=== PATIENT | female | born 1995 | race Caucasian/White ===

== ENCOUNTER 2017-05-09 18:14 | Emergency (ER) | payer SELFPAY ==
[2017-05-09 18:46] VITALS: BP 126/56; PULSE 100; TEMP 97.6; BMI 23.3
[2017-05-09 19:49] LABS: HCG,QUALITATIVE URINE POSITIVE
[2017-05-09 19:50] LABS: URINE APPEARANCE SLCLOUDY; URINE BILIRUBIN NEGATIVE (NEGATIVE); URINE BLOOD 1+ (NEGATIVE); URINE COLOR YELLOW; URINE GLUCOSE (UA) NEGATIVE (NEGATIVE); URINE KETONE NEGATIVE (NEGATIVE); URINE LEUK ESTERASE TRACE (NEGATIVE); URINE NITRITE POSITIVE (NEGATIVE); URINE PROTEIN NEGATIVE (NEGATIVE); URINE UROBILINOGEN NEGATIVE mg/dL (0.2-1.0)
[2017-05-09 19:53] LABS: EPI CELLS FEW /HPF (FEW); URINE BACTERIA MODERATE /hpf (NONE SEEN); URINE MUCUS RARE
[2017-05-09] MEDS ORDERED: NITROFURANTOIN MACROCRYSTAL 50 MG CAPSULE (FP) PO SCH (20:30)
--- NOTE | 2017-05-09 20:57 | PDOC ---
History of Present Illness - General Chief Complaint: Pain, Acute Stated Complaint: ABD PAIN/ Time Seen by Provider: 05/09/17 18:50 - History of Present Illness Initial Comments: 05/09/17 20:57 22F with pmh of lower abdominal pain, vomiting and generalized fatigue for the past 3 days. No care at this time. No difficulty urinating or moving bowels. 05/09/17 20:58 05/09/17 20:59 Past History - Past Medical History Allergies/Adverse Reactions: Allergies Allergy/AdvReac Type Severity Reaction Status Date / Time No Known Allergies Allergy Verified 05/09/17 18:31 Home Medications: Ambulatory Orders Nitrofurantoin Monohyd/M-Cryst [Macrobid -] 100 mg PO BID #14 capsule 05/09/17 Oseltamivir Phosphate [Tamiflu] 75 mg PO BID #10 capsule 05/09/17 COPD: No Other medical history: denies - Suicide/Smoking/Psychosocial Hx Smoking History: Current every day smoker Have you smoked in the past 12 months: Yes Number of Cigarettes Smoked Daily: 8 Information on smoking cessation initiated: No Hx Alcohol Use: No Drug/Substance Use Hx: No Substance Use Type: None Review of Systems - Review of Systems Able to Perform ROS?: Yes Is the patient limited Amharic proficient: No Constitutional: Yes: Symptoms Reported, Weakness. No: Chills HEENTM: No: Symptoms Reported Respiratory: No: Symptoms reported Cardiac (ROS): No: Symptoms Reported ABD/GI: Yes: See HPI : Yes: See HPI Musculoskeletal: No: Symptoms Reported Integumentary: No: Symptoms Reported All Other Systems: Reviewed and Negative *Physical Exam - Vital Signs Last Vital Signs Temp Pulse Resp BP Pulse Ox 97.6 F 100 H 20 126/56 100 05/09/17 18:32 05/09/17 18:32 05/09/17 18:32 05/09/17 18:32 05/09/17 18:32 - Physical Exam General Appearance: Yes: Nourished, Appropriately Dressed. No: Apparent Distress HEENT: positive: EOMI, SONYA, Normal ENT Inspection Neck: negative: Tender Respiratory/Chest: positive: Lungs Clear, Normal Breath Sounds. negative: Chest Tender, Respiratory Distress Cardiovascular: positive: Regular Rhythm, Regular Rate, S1, S2 Female Pelvic Exam: positive: normal external exam, cervical os closed, CMT, discharge (white) Gastrointestinal/Abdominal: positive: Normal Bowel Sounds, Tender (suprapubic), Protuberent Extremity: positive: Normal Capillary Refill, Normal Inspection Integumentary: positive: Normal Color, Dry, Warm Neurologic: positive: Fully Oriented, Alert, Depressed Affect ED Treatment Course - LABORATORY CBC & Chemistry Diagram: 05/09/17 21:00 05/09/17 21:00 - ADDITIONAL ORDERS Additional order review: Laboratory Results 05/09/17 19:30 Urine Color Yellow Urine Appearance Slcloudy Urine pH 6.0 Ur Specific [place] 1.006 Urine Protein Negative Urine Glucose (UA) Negative Urine Ketones Negative Urine Blood 1+ H Urine Nitrite Positive Urine Bilirubin Negative Urine Urobilinogen Negative Ur Leukocyte Esterase Trace Urine WBC (Auto) 2 Urine RBC (Auto) 3 Ur Epithelial Cells Few Urine Bacteria Moderate Urine Mucus Rare Urine HCG, Qual Positive - RADIOLOGY Radiology Studies Ordered: Category Date Time Status LIMITED US [US] Stat Ultrasound 05/09/17 20:18 Taken Medical Decision Making - Medical Decision Making 05/09/17 21:25 Positive preg Positive flu positve UA for UTI Will start on Macrobid U/S pending. *DC/Admit/Observation/Transfer Diagnosis at time of Disposition: Urinary tract infection affecting care of mother in second trimester, antepartum, Influenza - Discharge Dispostion Disposition: HOME Condition at time of disposition: Fair Admit: No - Referrals - Patient Instructions Printed Discharge Instructions: DI for Urinary Tract Infection (UTI), Influenza Vaccine Reduces and Hospitalization From Complications of I, How to Avoid a Cold or Flu, and STDs - Post Discharge Activity
[2017-05-09 21:07] LABS: BASO % 0.8 % (0-2.0); EOS % 0.3 % (0-4.5); HEMATOCRIT 32.1 % (32.4-45.2); HEMOGLOBIN 10.6 GM/dL (10.7-15.3); LYMPH % 10.4 % (8-40); MCH 28.6 pg (25.7-33.7); MCHC 33.1 g/dl (32.0-36.0); MEAN CELL VOLUME 86.4 fl (80-96); MONO % 7.3 % (3.8-10.2); NEUT % 81.2 % (42.8-82.8); PLATELET COUNT 201 K/MM3 (134-434); RBC 3.72 M/mm3 (3.60-5.2); WHITE BLOOD COUNT 7.9 K/mm3 (4.0-10.0)
[2017-05-09] MEDS ORDERED: ACETAMINOPHEN 1000 MG/100 ML VIAL (NON FORMULARY) IVPB ONE (21:23)
[2017-05-09] MEDS ORDERED: SODIUM CHLORIDE 1,000 ML IV STA (21:23)
[2017-05-09 21:30] LABS: ALBUMIN 2.6 g/dl (3.4-5.0); ANION GAP 7 (8-16); BILIRUBIN,TOTAL 0.1 mg/dL (0.2-1.0); BLOOD UREA NITROGEN 6 mg/dL (7-18); CALCIUM 7.5 mg/dL (8.5-10.1); CHLORIDE 105 mmol/L (98-107); CO2 25 mmol/L (21-32); CREATININE 0.5 mg/dL (0.55-1.02); GLUCOSE,RANDOM 79 mg/dL (74-106); SGPT/ALT 24 U/L (12-78); SODIUM 137 mmol/L (136-145); TOT PROT 6.2 g/dl (6.4-8.2)
[2017-05-09] MEDS ORDERED: OSELTAMIVIR PHOSPHATE 75 MG CAPSULE PO ONE (21:34)
--- NOTE | 2017-05-09 21:34 | PDOC ---
Attending Attestation - Resident Resident Name: AdkinsRichmond - ED Attending Attestation I have performed the following: I have examined & evaluated the patient, The case was reviewed & discussed with the resident, I agree w/resident's findings & plan, Exceptions are as noted - Medical Decision Making 05/09/17 21:32 I, Dr. Loraine Preston, DO, attest that this document has been prepared under my direction and personally reviewed by me in its entirety. I further attest, that it accurately reflects all work, treatment, procedures and medical decision -making performed by me. 05/09/17 21:32 a/p: 22yo female female with cramping, no bleeding, achy, not feeling well -will cehck labs, ultrasound -flu swab -ua -type and screen no vag bleeding states hx of STD will do STD check while here in the ED currently taking vitamins will monitor and reassess 05/09/17 21:33 ultrasound shows 20week live IUP <Loraine Preston - Last Filed: 05/09/17 21:32> - HPI HPI: 05/09/17 21:56 The patient is a 20 weeks 22 year old female , with a significant past medical history of STD (patient is unable to specify), who presents to the emergency department with, nausea, lower abdominal pain and dysuria for approx. one week and one episode of vomiting this morning. The patient reports the lower abdominal pain as a pressure like pain. The patient reports recent vaginal discharge but denies vaginal bleeding. The patient reports she is currently taking vitamins. The patient reports she believes her LMP was in the beginning of January. She denies recent fevers, chills, headache or dizziness. She denies diarrhea or constipation. She denies recent chest pain or shortness of breath. Allergies: NKA - Physicial Exam PE: 05/09/17 21:57 GENERAL: +Tearful. Awake, alert, and fully oriented. HEAD: No signs of trauma EYES: PERRLA, EOMI, sclera anicteric, conjunctiva clear ENT: Auricles normal inspection, hearing grossly normal, nares patent, oropharynx clear without exudates. Moist mucosa NECK: Normal ROM, supple, no lymphadenopathy, JVD, or masses LUNGS: Breath sounds equal, clear to auscultation bilaterally. No wheezes, and no crackles HEART: +Tachycardia. Normal S1 and S2, no murmurs, rubs or gallops ABDOMEN: Soft, nontender, normoactive bowel sounds. No guarding, no rebound. No masses PELVIC: +Lower pelvic tenderness. EXTREMITIES: Normal range of motion, no edema. No clubbing or cyanosis. No cords, erythema, or tenderness NEUROLOGICAL: Cranial nerves II through XII grossly intact. Normal speech, normal gait SKIN: Warm, Dry, normal turgor, no rashes or lesions noted. <Mu Robison - Last Filed: 05/09/17 21:57>
[2017-05-09] MEDS ORDERED: AZITHROMYCIN 1 GM PACKET PO ONE (21:42)
[2017-05-09] MEDS ORDERED: OSELTAMIVIR PHOSPHATE 75 MG CAPSULE ONE (21:45)
[2017-05-09] MEDS ORDERED: AZITHROMYCIN 250 MG TABLET ONE (21:45)
[2017-05-09] MEDS ORDERED: NITROFURANTOIN MACROCRYSTAL 50 MG CAPSULE (FP) ONE (21:45)
[2017-05-09 21:46] LABS: ALK PHOS 64 U/L (45-117)
[2017-05-09] MEDS ORDERED: ACETAMINOPHEN INJECTION 100 ML IVPB ONE (21:46)
[2017-05-09 21:47] LABS: POTASSIUM 4.7 mmol/L (3.5-5.1); SGOT/AST 27 U/L (15-37)
--- NOTE | 2017-05-09 22:06 | PDOC ---
*Physical Exam - Vital Signs Last Vital Signs Temp Pulse Resp BP Pulse Ox 97.6 F 100 H 20 126/56 100 05/09/17 18:32 05/09/17 18:32 05/09/17 18:32 05/09/17 18:32 05/09/17 18:32 ED Treatment Course - LABORATORY CBC & Chemistry Diagram: 05/09/17 21:00 05/09/17 21:00 - ADDITIONAL ORDERS Additional order review: Laboratory Results 05/09/17 05/09/17 21:00 19:30 Sodium 137 Potassium 4.7 Chloride 105 Carbon Dioxide 25 Anion Gap 7 L BUN 6 L Creatinine 0.5 L Creat Clearance w eGFR > 60 Random Glucose 79 Calcium 7.5 L Total Bilirubin 0.1 L AST 27 ALT 24 Alkaline Phosphatase 64 Total Protein 6.2 L Albumin 2.6 L Beta HCG, Quant 05233.8 Urine Color Yellow Urine Appearance Slcloudy Urine pH 6.0 Ur Specific [place] 1.006 Urine Protein Negative Urine Glucose (UA) Negative Urine Ketones Negative Urine Blood 1+ H Urine Nitrite Positive Urine Bilirubin Negative Urine Urobilinogen Negative Ur Leukocyte Esterase Trace Urine WBC (Auto) 2 Urine RBC (Auto) 3 Ur Epithelial Cells Few Urine Bacteria Moderate Urine Mucus Rare Urine HCG, Qual Positive 05/09/17 19:30 Influenza Types A,B Antigen (SUPRIYA) - Final Nasopharyngeal Swab - Final 05/09/17 21:00 RBC 3.72 MCV 86.4 MCHC 33.1 RDW 18.0 H MPV 8.0 Neutrophils % 81.2 Lymphocytes % 10.4 Monocytes % 7.3 Eosinophils % 0.3 Basophils % 0.8 - RADIOLOGY Radiology Studies Ordered: Category Date Time Status LIMITED US [US] Stat Ultrasound 05/09/17 20:18 Completed - Medications Given in the ED: ED Medications Discontinued Medications Generic Name Dose Route Start Last Admin Trade Name Freq PRN Reason Stop Dose Admin Acetaminophen 1,000 mg 05/09/17 21:23 05/09/17 21:59 Ofirmev Injection - IVPB 05/09/17 21:24 1,000 mg ONCE ONE Administration Azithromycin 1 gm 05/09/17 21:42 05/09/17 21:59 Zithromax - PO 05/09/17 21:43 1 gm ONCE ONE Administration Oseltamivir Phosphate 75 mg 05/09/17 21:34 05/09/17 21:59 Tamiflu - PO 05/09/17 21:35 75 mg ONCE ONE Administration Medical Decision Making - Medical Decision Making 05/09/17 22:[address] Caceres at [facility] and Delivery who explained that the patient didn' t need to come to L&D because none of her complaints were obstetric in nature. *DC/Admit/Observation/Transfer Diagnosis at time of Disposition: Urinary tract infection affecting care of mother in second trimester, antepartum, Influenza - Discharge Dispostion Disposition: HOME Condition at time of disposition: Fair - Prescriptions Prescriptions: Nitrofurantoin Monohyd/M-Cryst [Macrobid -] 100 mg PO BID #14 capsule Oseltamivir Phosphate [Tamiflu] 75 mg PO BID #10 capsule - Referrals - Patient Instructions Printed Discharge Instructions: How to Avoid a Cold or Flu, Influenza Vaccine Reduces and Hospitalization From Complications of I, DI for Urinary Tract Infection (UTI), and STDs - Post Discharge Activity
[2017-05-09] MEDS ORDERED: cefTRIAXone SODIUM 1 GM VIAL ONE (22:42)
[2017-05-09] MEDS ORDERED: LIDOCAINE HCL 1%, 10 MG/ML (20ML VIAL) ONE (22:43)
== END 2017-05-09 22:51 | disposition home or self-care (01) ==
LOC: JER 18:14
PROC: 3E02329 Introduction of Other Anti-infective into Muscle, Percutaneous Approach (ICD-10-PCS; principal; 2017-05-09)
PROC: 3E033NZ Introduction of Analgesics, Hypnotics, Sedatives into Peripheral Vein, Percutaneous Approach (ICD-10-PCS; 2017-05-09)
DX: O98.512 Other viral diseases complicating pregnancy, second trimester (principal); J09.X2 Influenza due to identified novel influenza A virus with other respiratory manifestations; O23.42 Unspecified infection of urinary tract in pregnancy, second trimester; Z3A.20 20 weeks gestation of pregnancy; F17.210 Nicotine dependence, cigarettes, uncomplicated
CPT/HCPCS: 36415; 76815-TC; 80053; 81003; 81015; 84702; 84703; 85025; 86850; 86900; 86901; 87804; 99281-25